=== PATIENT | male | born 1970 | race Caucasian/White ===

== ENCOUNTER 2018-12-04 15:15 | Emergency (ER) | payer OTHER ==
[2018-12-04] MEDS ORDERED: NS 0.9% 1000 ML* 1,000 ML IV ONE ×2 (15:50→19:37)
[2018-12-04] MEDS ORDERED: Ketorolac INJ* 30 MG/ML 1 ML VIAL IV PUSH ONE (15:50)
[2018-12-04 16:46] LABS: ABS Basophils 0 10^3/ul (0-0.2); ABS Eosinophils 0 10^3/ul (0-0.6); ABS Lymphocytes 0.3 10^3/ul (1.0-4.8); ABS Monocytes 0.4 10^3/ul (0-0.8); ABS Neutrophils 8.8 10^3/ul (1.5-7.7); ABS Nucleated RBC 0 10^3/ul; Eosinophil % 0.1 %; Hematocrit 50 % (42-52); Hemoglobin 17.3 g/dl (14.0-18.0); Lymphocyte % 3.1 %; Mean Corpuscular HGB Conc 35 g/dl (31-36); Mean Corpuscular Hemoglobin 32 pg (27-31); Mean Corpuscular Volume 93 fL (80-94); Nucleated Red Blood Cells % 0.1; Platelet Count 210 10^3/ul (150-450); Red Cell Distribution Width 14 % (10.5-15); White Blood Count 9.5 10^3/ul (3.5-10.8)
[2018-12-04 16:53] LABS: Influenza A Molecular NEGATIVE (Negative); Influenza B Molecular NEGATIVE (Negative)
[2018-12-04] MEDS ORDERED: guaiFENesin/CODIEN 100MG-10MG* 5 ML UDC PO ONE (17:00)
[2018-12-04 17:20] LABS: Albumin 4.7 g/dL (3.2-5.2); Albumin/Globulin Ratio 1.7 (1-3); BUN/Creatinine Ratio 14.3 (8-20); C Reactive Protein 7.66 mg/L (<8.01); Calcium 9.6 mg/dL (8.6-10.3); EGFR African American 118.5 (>60); EGFR Non-African American 97.9 (>60); Globulin 2.7 g/dL (2-4); Potassium 4.2 mmol/L (3.5-5.0); Total Bilirubin 0.5 mg/dL (0.2-1.0); Total Protein 7.4 g/dL (6.4-8.9)
--- NOTE | 2018-12-04 17:36 | ED ---
Respiratory - HPI Summary HPI Summary: 48-year-old male presents with cough and shortness breath. He states that he developed back pain in his thoracic region. He states it does radiate into his chest. He states he feels that he can not catch his breath. He is a smoker. He denies any history asthma or COPD. Has no medical problems. No nausea or vomiting. No sore throat. No sinus congestion. He states he did not take anything. No history of any heroin or opioid addiction. He states he feels like he just can't catch his breath. No fevers. No headache. No nausea vomiting or diarrhea. - History of Current Complaint Chief Complaint: EDShortnessOfBreath Stated Complaint: SOB/BACK PAIN Time Seen by Provider: 12/04/18 15:46 Pain Intensity: 10 - Allergy/Home Medications Allergies/Adverse Reactions: Allergies Allergy/AdvReac Type Severity Reaction Status Date / Time No Known Allergies Allergy Verified 12/04/18 15:44 Home Medications: Home Medications NK [No Home Medications Reported] 12/04/18 [History Confirmed 12/04/18] PMH/Surg Hx/FS Hx/Imm Hx Endocrine/Hematology History: Denies: Hx Anticoagulant Therapy Cardiovascular History: Denies: Hx Hypertension Respiratory History: Denies: Hx Asthma, Hx Chronic Obstructive Pulmonary Disease (COPD) Infectious Disease History: No Infectious Disease History: Denies: Traveled Outside the [place] in Last 30 Days - Social History Alcohol Use: None Substance Use Type: Reports: None Smoking Status (MU): Current Every Day Smoker Review of Systems Negative: Fever Negative: Chest Pain Positive: Shortness Of Breath, Cough Negative: Abdominal Pain Positive: Myalgia - back pain All Other Systems Reviewed And Are Negative: Yes Physical Exam Triage Information Reviewed: Yes Vital Signs On Initial Exam: Initial Vitals Temp Pulse Resp BP Pulse Ox 99.1 F 123 32 173/73 94 12/04/18 15:38 12/04/18 15:38 12/04/18 15:38 12/04/18 15:38 12/04/18 15:38 Vital Signs Reviewed: Yes Appearance: Positive: Ill-Appearing Skin: Positive: Warm, Dry Head/Face: Positive: Normal Head/Face Inspection Eyes: Positive: Normal, EOMI, PLACIDO, Conjunctiva Clear ENT: Positive: Normal ENT inspection, Pharynx normal, TMs normal Respiratory/Lung Sounds: Positive: Breath Sounds Present, Other - rapid resp rate Cardiovascular: Positive: Tachycardia Abdomen Description: Positive: Nontender, Soft Bowel Sounds: Positive: Present Musculoskeletal: Positive: Normal Neurological: Positive: Normal Psychiatric: Positive: Normal Diagnostics - Vital Signs Vital Signs Temp Pulse Resp BP Pulse Ox 12/04/18 16:54 119 32 163/99 94 12/04/18 15:38 99.1 F 123 32 173/73 94 - Laboratory Lab Results: Lab Results 12/04/18 12/04/18 12/04/18 Range/Units 15:46 15:46 15:46 WBC 9.5 (3.5-10.8) 10^3/ul RBC 5.40 (4.00-5.40) 10^6/ul Hgb 17.3 (14.0-18.0) g/dl Hct 50 (42-52) % MCV 93 (80-94) fL MCH 32 H (27-31) pg MCHC 35 (31-36) g/dl RDW 14 (10.5-15) % Plt Count 210 (150-450) 10^3/ul MPV 8.0 (7.4-10.4) fL Neut % (Auto) 92.6 % Lymph % (Auto) 3.1 % [place] % (Auto) 3.9 % Eos % (Auto) 0.1 % Baso % (Auto) 0.3 % Absolute Neuts (auto) 8.8 H (1.5-7.7) 10^3/ul Absolute Lymphs (auto) 0.3 L (1.0-4.8) 10^3/ul Absolute Monos (auto) 0.4 (0-0.8) 10^3/ul Absolute Eos (auto) 0 (0-0.6) 10^3/ul Absolute Basos (auto) 0 (0-0.2) 10^3/ul Absolute Nucleated RBC 0 10^3/ul Nucleated RBC % 0.1 D-Dimer, Quantitative (Less Than 230) ng/mL Sodium 135 (135-145) mmol/L Potassium 4.2 (3.5-5.0) mmol/L Chloride 103 (101-111) mmol/L Carbon Dioxide 24 (22-32) mmol/L Anion Gap 8 (2-11) mmol/L BUN 12 (6-24) mg/dL Creatinine 0.84 (0.67-1.17) mg/dL Est GFR ( Amer) 118.5 (>60) Est GFR (Non-Af Amer) 97.9 (>60) BUN/Creatinine Ratio 14.3 (8-20) Glucose 106 H (70-100) mg/dL Lactic Acid 1.1 (0.5-2.0) mmol/L Calcium 9.6 (8.6-10.3) mg/dL Total Bilirubin 0.50 (0.2-1.0) mg/dL AST 35 (13-39) U/L ALT 54 H (7-52) U/L Alkaline Phosphatase 73 (34-104) U/L Troponin I 0.00 (<0.04) ng/mL C-Reactive Protein 7.66 (<8.01) mg/L B-Natriuretic Peptide (<=100) pg/mL Total Protein 7.4 (6.4-8.9) g/dL Albumin 4.7 (3.2-5.2) g/dL Globulin 2.7 (2-4) g/dL Albumin/Globulin Ratio 1.7 (1-3) Influenza A (Rapid) (Negative) Influenza B (Rapid) (Negative) 12/04/18 12/04/18 12/04/18 Range/Units 15:46 15:46 16:42 WBC (3.5-10.8) 10^3/ul RBC (4.00-5.40) 10^6/ul Hgb (14.0-18.0) g/dl Hct (42-52) % MCV (80-94) fL MCH (27-31) pg MCHC (31-36) g/dl RDW (10.5-15) % Plt Count (150-450) 10^3/ul MPV (7.4-10.4) fL Neut % (Auto) % Lymph % (Auto) % [place] % (Auto) % Eos % (Auto) % Baso % (Auto) % Absolute Neuts (auto) (1.5-7.7) 10^3/ul Absolute Lymphs (auto) (1.0-4.8) 10^3/ul Absolute Monos (auto) (0-0.8) 10^3/ul Absolute Eos (auto) (0-0.6) 10^3/ul Absolute Basos (auto) (0-0.2) 10^3/ul Absolute Nucleated RBC 10^3/ul Nucleated RBC % D-Dimer, Quantitative < 200 (Less Than 230) ng/mL Sodium (135-145) mmol/L Potassium (3.5-5.0) mmol/L Chloride (101-111) mmol/L Carbon Dioxide (22-32) mmol/L Anion Gap (2-11) mmol/L BUN (6-24) mg/dL Creatinine (0.67-1.17) mg/dL Est GFR ( Amer) (>60) Est GFR (Non-Af Amer) (>60) BUN/Creatinine Ratio (8-20) Glucose (70-100) mg/dL Lactic Acid (0.5-2.0) mmol/L Calcium (8.6-10.3) mg/dL Total Bilirubin (0.2-1.0) mg/dL AST (13-39) U/L ALT (7-52) U/L Alkaline Phosphatase (34-104) U/L Troponin I (<0.04) ng/mL C-Reactive Protein (<8.01) mg/L B-Natriuretic Peptide 23 (<=100) pg/mL Total Protein (6.4-8.9) g/dL Albumin (3.2-5.2) g/dL Globulin (2-4) g/dL Albumin/Globulin Ratio (1-3) Influenza A (Rapid) Negative (Negative) Influenza B (Rapid) Negative (Negative) Result Diagrams: 12/04/18 15:46 12/04/18 15:46 Lab Statement: Any lab studies that have been ordered have been reviewed, and results considered in the medical decision making process. - Radiology chest Radiology Interpretation Completed By: Radiologist Summary of Radiographic Findings: nad - CT cta CT Interpretation Completed By: Radiologist Summary of CT Findings: IMPRESSION: 1. No pulmonary emboli. 2. Multiple pulmonary nodules. Based on current Crescencio criteria, if low risk. no followup indicated and if high risk optional followup chest CT in 12 months. recommended. - EKG No standard instances Cardiac Rate: Tachycardia EKG Rhythm: Sinus Tachycardia Summary of EKG Findings: sinus tachycardia, early repolization Re-Evaluation - Re-Evaluation First Eval Re-Evaluation Time: 17:35 Change: Improved Comment: still tachycardia Second Eval Change: Improved Comment: pain better Third Eval Re-Evaluation Time: 20:58 Change: Unchanged Comment: still tachycardic after two liters and morphine and ativan Fourth Eval Re-Evaluation Time: 21:36 Comment: discussed hospitalization and patient refused Disposition - Course Course Of Treatment: 48-year-old male presents with cough and shortness breath. He states that he developed back pain in his thoracic region. He states it does radiate into his chest. He states he feels that he can not catch his breath. He is a smoker. He denies any history asthma or COPD. Has no medical problems. No nausea or vomiting. No sore throat. No sinus congestion. He states he did not take anything. No history of any heroin or opioid addiction. He states he feels like he just can't catch his breath. No fevers. No headache. No nausea vomiting or diarrhea. On exam is tachypneic and tachycardic. Lungs clear to auscultation. Abdomen soft nontender. Chest x- ray normal. Labs without significant abnormality except for a TSH low. Free T4 is normal. free T3 is elevated. Flu negative. With the tachycardia and O2 sats 92-95 got CTA of chest and pelvis which is normal. Discuss case with Dr. Barnard. Want to admit patient as continues to be tachycardia. Patient refuses admission. Patient signed out AMA after being warned of risk of , sepsis etc with current symptoms. - Differential Dx - Cardiopulmonary Differential Diagnoses - Cardiopulmonary: Influenza, Lower Resp Infection, Pulmonary Embolism - Diagnoses Provider Diagnoses: Shortness of breath, Tachycardia, Hyperthyroidism Discharge - Sign-Out/Discharge Documenting (check all that apply): Patient Departure - Discharge Plan Condition: Guarded Disposition: AGAINST MEDICAL ADVICE Referrals: No Primary Care Phys,NOPCP [Primary Care Provider] - - Billing Disposition and Condition Condition: GUARDED Disposition: Against Medical Advice
[2018-12-04] MEDS ORDERED: Morphine VIAL* 4 MG/ML VIAL (1 ml vial) IV ONE ×2 (18:09→19:35)
[2018-12-04] MEDS ORDERED: Iohexol 350* (CONTRAST) 500 ML MDV IV ONE (19:04)
[2018-12-04 19:45] LABS: Urine Appearance Clear; Urine Bilirubin Negative (Negative); Urine Blood Negative (Negative); Urine Color Yellow; Urine Glucose Negative (Negative); Urine Ketones 2+ (Negative); Urine Nitrite Negative (Negative); Urine Protein Negative (Negative); Urine Specific Gravity 1.027 (1.010-1.030); Urine Urobilinogen Negative (Negative)
[2018-12-04 20:08] LABS: TSH (Thyroid Stimulating Horm) 0.25 mcIU/mL (0.34-5.60)
[2018-12-04 20:34] LABS: Barbiturates Urine Screen None Detected (None Detect); Benzodiazepine Urine Screen None Detected (None Detect); Urine Cannabinoids Screen None Detected (None Detect)
[2018-12-04] MEDS ORDERED: LORazepam INJ* 2 MG/ML 1 ML VIAL IV PUSH ONE (20:45)
[2018-12-04 20:49] LABS: Free T4 1.02 ng/dL (0.61-1.12)
[2018-12-04 21:16] LABS: Free T3 5.1 pg/mL (2.5-3.9)
[2018-12-04] MEDS ORDERED: Atenolol TAB* 25 MG PO SCH (22:00)
[2018-12-04 22:15] VITALS: BP 156/100
--- NOTE | 2018-12-05 00:41 | PN ---
Progress Note - Progress Note Date of Service: 12/04/18 - asked to assist in evaluation of patient with continued tachycardia and shortness of breath. Note: 48 yo M from [place], brought in by his boss, for shortness of breath. Pt was seen and evaluated by Amy Harris and full evaluation was negative, however patient remained tachycardic to 145 despite 2 liters of fluid, ativan, and continued to be short of breath with respiratory rate of 50 and pt was tripoding and using pursed lip breathing with O2 sat 91% and was hypertensive 156/100. Pt has tachypnea but PE: alert, no moderate pain distress. HEENT: pursed lip breathing, pharynx clear. Neck no JVD, trachea midline. Lungs decreased BS, but no wheezes, rales or rhonchi, Cor tachy s1 S2, abd benign, extremities without edema. Neuro Alert, O x 3, Facial symmetry, speech is fluent and coherent, Moves all extremities well, no focal deficit, Sensation intact to light touch, Normal Gait. Psychological: denies SI/HI, has capacity. Pt was recommended for admission by myself and Amy and accepted by Dr. Hernandez, however pt refused to be admitted. I discussed by speaker phone with pt's javier Mccann who was in [place] and she wanted pt to be admitted but pt said "you don't get a vote" and stated he still wanted to leave. 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 I advised pt that he could , that he could have a respiratory or cardiac arrest, permanent disability, sepsis, and pt still wanted to leave. Pt has capacity. He was given morphine and ativan during the course of his evaluation but he was cogent and alert and the medications were not still in effect at the time he was recommended for admission and pt's javier stated that he was his usual self to her. Pt's boss also called, Anson Trivedi, call back number [phone], called at 10:30pm to check on patient's status. He was in the ED earlier 6:30-7:00pm and pt did not want further testing or evaluation. I told him that pt was recommended for admission and he was refusing. Mr Trivedi is not related to patient, and has no say about his medical care. He was agreeing to give him a ride back to their hotel, but he did not want to be held responsible for patient 's decisions or medical outcome. Charge nurse Tal tried to advise pt to be admitted. Pt's nurse Ghazal Avila tried to advise pt to be admitted. Nursing switchboard operator supervisor James is aware of pt's vital signs and symptoms, and pt's decision to leave AMA, and pt continues to refuse to be admitted. Pt was ambulatory to the bathroom unassisted without incident. Pt was ambulatory at discharge with shortness of breath and security witnessed that pt did leave the hospital without incident. Final diagnoses as per Amy and mike: shortness of breath, tachycardia, hyperthyroidism, AMA Pt was examined interviewed and advised in a face to face encounter by myself. Pt's labs and xray studies were reviewed and discussed with NU Gómez. NU Gómez's documentation reviewed by myself and agree entirely with her documentation. Pt signed AMA documentation, witnessed by Ghazal Avila RN. Pt was advised that he may return at any time and Anson Wittyanethzeb was also advised that pt may return to the ED at any time for follow up. Pt is advised of [facility] that he may contact in the am for follow up. Pt states he will not do this because he has to be in [place] in the am. Pt was prescribed atenolol in the ED for the tachycardia and hypertension and refused. Pt and pt's boss (Anson, as above) were both advised that this encounter does not qualify as a workman's compensation evaluation. Pt's condition is not related to work environment or work injury. Sylwia Kinsey MD 12/04/18 22:00
== END 2018-12-04 22:19 | disposition left against medical advice (07) ==
LOC: ED 15:15
DX: R06.02 Shortness of breath (principal); E05.90 Thyrotoxicosis, unspecified without thyrotoxic crisis or storm; R00.0 Tachycardia, unspecified; R05 Cough; M54.9 Dorsalgia, unspecified; F17.210 Nicotine dependence, cigarettes, uncomplicated
CPT/HCPCS: 36415; 71046; 71275; 74174; 80053; 80307; 81003; 83605; 83880; 84439; 84443; 84481; 84484; 85025; 85379; 86140; 93005; 96361; 96374; 96375; 99284; A9270-GY; J1885; J2060; J2270; Q9967